=== PATIENT | female | born 1995 | race African-American/Black ===

== ENCOUNTER 2021-06-12 14:47 | Emergency (ER) | payer OTHER ==
[~2021-06-12] VITALS: Ht 152.4 cm; Wt 43.1 kg
[2021-06-12 15:14] LABS: ABSOLUTE BASOPHILS 0.1 thou/uL (0.0-0.2); ABSOLUTE LYMPHOCYTES 2.4 thou/uL (0.8-5.3); ABSOLUTE MONOCYTES 0.5 thou/uL (0.0-1.2); ABSOLUTE NEUTROPHILS 7.9 thou/uL (1.6-8.1); BASOPHILS 0.6 %; EOSINOPHILS 0.1 %; HEMATOCRIT 40.4 % (37.0-47.0); HEMOGLOBIN 13.5 gm/dL (12.0-15.0); LYMPHOCYTES 22.1 %; MCH 32.2 pg (26.0-34.0); MCHC 33.4 g/dL (28.0-37.0); MCV 96.5 fL (80.0-100.0); MPV 6.9 fl. (7.2-11.1); NUCLEATED RBCS 0 /100WBC; PLATELET COUNT* 407 thou/uL (150-400); POLYS 72.2 %; RBC 4.18 mil/uL (4.20-5.00); RDW-CV 13.8 % (10.5-14.5); WBC 10.9 thou/uL (4.0-11.0)
[2021-06-12 15:22] LABS: CALCIUM 8.2 mg/dL (8.5-10.1); CREATININE 0.9 mg/dL (0.6-1.3); POTASSIUM 3.9 mmol/L (3.5-5.1)
[2021-06-12 15:27] LABS: TOTAL BILIRUBIN 0.2 mg/dL (<0.1-1.0); TOTAL PROTEIN 7.6 g/dL (6.4-8.2)
[2021-06-12 16:15] VITALS: BP 121/84
--- NOTE | 2021-06-13 10:12 | EKG ---
[place] [address] ELECTROCARDIOGRAM REPORT Name: LIVIERRAO Fifi Room: [facility]#: [id number] Admission: 06/12/21 Attend Phys: Discharge: 06/12/21 Date of : 89 Date of Service: 06/12/21 1503 Report #: [id number] THIS REPORT FOR: //name// [facility] ED Test Date: 2021-06-12 Test Time: 15:03:29 Pat Name: RAO MAIER Department: Room: Gender: Technology Program Manager: CHRISTIANO : 1995 Requested By: Kai Stahl Order Number: [id number] MD: Livan Thornton Measurements Intervals [place] Rate: 77 P: 86 SD: 163 QRS: 59 QRSD: 86 T: 29 QT: 415 QTc: 470 Interpretive Statements Sinus rhythm Borderline low voltage, extremity leads Borderline prolonged QT interval Baseline wander in lead(s) V6 No previous ECG available for comparison Electronically Signed On 06-13-2021 10:12:29 CDT by Livan Thornton [email or web address] <ELECTRONICALLY SIGNED> By: Livan Thornton MD, [facility] 06/13/21 1012 1503 1503 Livan Thornton MD, [facility] /EPI
== END 2021-06-12 16:17 | disposition home or self-care (01) ==
LOC: M.ERS 14:47
PROVIDERS: Emergency Medicine Emergency Medical Services
DX: R55 Syncope and collapse (principal)